=== PATIENT | female | born 1990 | race Caucasian/White ===

== ENCOUNTER 2024-10-20 12:49 | Emergency (ER) | payer OTHER, SELFPAY ==
--- OUTSIDE RECORDS SUMMARY | 2024-10-20 12:57 | XMS_ITS | Clinical Summary ---
Author Organization [facility] Address [address] [place] [address] Care Team Providers Care Poising Inspector Name Role Phone Dariela Nesbitt MD Primary Care Provider [phone] Nicolle Howard MD Unavailable [phone] Allergies No known active allergies Medications vit [id number]-qord-hbzbv-d small 27mg iron- 800 mcg-250 mg capsuleIndicati ons: Take 1 capsule by mouth daily Active acidophilus-pec tin, citrus 100 million cell-10 mg capsule Take by mouth Active Active Problems Problem Noted Date Diagnosed Date Encounter for ultrasound to check growth 0 09/13/2024 Marginal placenta previa 07/19/2024 Encounter for screening for cervical l ength 07/17/2024 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 Overview (08/13/2021): Added automatically from request for surgery [id number] Estimated Date of Delivery Comme nts Yes 12/12/2024 Based on last me nstrual period of 03/07/2024 Resolved Problems Problem Noted Date Diagnosed Date Resolved Date Encounter for anatomic survey 07/17/2024 09/13/2024 Confirm cardiac activi ty using ultrasound 04/25/2024 07/17/2024 IUD strings lost 08/06/2019 08/31/2021 IUD check up 08/06/2019 08/31/2021 Anorectal pain 12/22/2015 07/26/2019 Exomphalos 06/14/2013 07/26/2019 Encounters Date Type Department Care Team Description 10/17/2024 2:30 PM CDT Office Visit [facility] [address] [phone] Gela Rocha MD Encounter for supervision of other normal in third trimester (Primary Dx); 32 weeks gestation of ; Need for ldgjurmntn-dnuzgoh-r ertussis (Tdap) vaccine 10/03/2024 2:15 PM CDT Office Visit [facility] [address] [phone] Gela Rocha MD Encounter for supervision of other normal in third trimester (Primary Dx); 30 weeks gestation of 09/19/2024 9:55 AM CDT - 09/19/2024 11:59 PM CDT Hospital Encounter [address] [phone] Discharge Disposition: Discharge to home or self care 09/19/2024 8:45 AM CDT Office Visit [facility] [address] [phone] Gela Rocha MD Encounter for supervision of other normal in third trimester (Primary Dx); 28 weeks gestation of 09/19/2024 8:00 AM CDT Clinical Support [facility] [address] [phone] Marginal placenta previa (Primary Dx); Encounter for screening for cervical length; Encounter for ultrasound to check growth 08/21/2024 2:30 PM CDT Office Visit [facility] [address] [phone] Zully Rogers NP care in second trimester (Primary Dx); 23 weeks gestation of from Last 3 Months Immunizations Immunization Administration Dates Next Due Moderna SARS-CoV-2 Monovalent Vaccination (12+ Y RS) 11/25/2020,10/28/2020 Tdap 10/17/2024,02/28/2019 Surgical History Surgery Date Site/Laterality Comments HERNIA REPAIR 06/06/2009 - 06/05/2010 FISTULA REPAIR 06/06/2020 - 06/05/2021 Medical History Medical History Date Comments Migraines Motion sickness Family History Medical History Relation Name Comments No Known Problems Father Anesthesia problems Mother PONV Breast cancer Mother Malig Hyperthermia Neg Hx Pseudochol deficiency Neg Hx Relation Name Status Comments Father Mother Social History Tobacco Use Types Packs/Day Years Used Date Smoking Tobacco: Never Smokeless Tobacco: Never Tobacco Cessation:Counseling Given: Not Answered Alcohol Use Standard Drinks/Week Comments Yes 0 (1 standard drink = 0.6 oz pur e alcohol) Humiliation, Afraid, Rape, and Kick questionnair e Answer Date Recorded Fear of Current or Ex-Partner No Emotionally Abused No 07/26/2019 Physically Abused No 07/26/2019 Sexually Abused No 07/26/2019 Social Connection and Isolation Panel [NHANES] A nswer Date Recorded Frequency of Communication with Friends and Fami ly Not on file 07/26/2019 Frequency of Social Gatherings with Friends and Family Not on file 07/26/2019 Attends Muslim Services Not on file 07/26 Active Member of Clubs or Organizations Not on f ile 07/26/2019 Attends Club or Organization Meetings Not on colin e 07/26/2019 Marital Status Never 07/26/2019 AUDIT-C Answer Date Recorded Q1: How often do you have a drink containing alc ohol? 2-4 times a month 09/16/2021 Q2: How many drinks containi ng alcohol do you have on a typical day when you are drinking? 1 or 2 09/16/2021 Q3: How often do you have si x or more drinks on one occasion? 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 Gender Identity Not on file Sexual Orientation Not on file Obstetrics History Para Term AB IAB SAB Ectopic Multiple Livin g Live Births 1 0 0 0 0 0 0 0 0 0 0 Date Outcome GA Total Labor Labor/2nd/3rd Weight Sex Type Anes PTL Feli A1 A5 Name Clin Current Summary Episode Dates Number of Fetuses Estimated Date of Delivery 04/30/2024 - Present (10/20/2024) 12/12/2024 (set by Gela Rocha MD on 04/30/2024 based on Last Menstrual Period on 03/07/2024) Dating Summary Based On [facility] [place] Diff Last Menstrual Period on 03/07/2024 12/12/2024 Working Ultrasound on 04/30/2024 12/12/2024 Same GA:7w5d Alternate [facility] Entry 12/12/2024 Same Comment:Date entered prior t o episode creation Vitals Pregravid Weight Height TWG (As of 10/20/2024) Pregrav id BMI 54.9 kg (121 lb) 160 cm (5' 3 ) 10.4 kg (23 lb) 21.44 Notes Progress Notes - Office Visi t - 10/17/2024 - GA:32w0d 10/17/2024 - 32w0d - Gela Rocha MD [place] is feeling daily movement. She denies any vaginal bleeding, leakage of fluid or regular contractions. She denies any headaches, visual changes, right upper quadrant/epigastric pain or increased swelling. Ultrasound 28w revealed EFW= 1121 g or 2 lb 8 oz, 29% with AC= 44%. JOJO of 16.1 cm. Vertex presentation. Stomach, bladder, kidneys and diaphragm appeared normal. Placenta is posterior and 1.7 cm from internal os. Cervical length was noted to be 3.5 cm. heart rate measured 131 beats per minute. A/P 34 y.o. @ 32w0d by LMP=7w ultrasound (baby boy) 1. Supervision -A+/RI/-/-/NR, varicella immune, HepC-, declines influenza vaccine, GCT= 105, Tdap vaccine given 10/17 -s/p low risk NIPT -s/p genetic carrier screening tested negative for 4/ (negative testing for CF/SMA/fragile X/DMD) - labor precautions reviewed -preeclampsia precautions reviewed -kick counts reviewed and she was encouraged to call for decreased movement. -desires circumcision for their son, has breast pump (plans to pump breast milk, not directly breastfeed) - contraceptive options reviewed and she is leaning towards condoms 2. 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 Marginal previa -marginal previa again noted on ultrasound at 28w, placental edge 1.7 cm from os, reviewed with the patient that I suspect that this may move further away and we will reassess placental location at 34w -instructed to go the hospital for any episodes of vaginal bleeding or persistent/regular contractions Progress Notes - Office Visi t - 10/03/2024 - GA:30w0d 10/03/2024 - 30w0d - Gela Rocha MD [place] is feeling daily movement. She denies any vaginal bleeding, leakage of fluid or regular contractions. She denies any headaches, visual changes, right upper quadrant/epigastric pain. She has noted some discomfort just above and lateral to her umbilicus that she would describe as a burning sensation and she feels it is near where she had hernia repair when she was in high school. She reports this discomfort is somewhat positional and it does improve if she leans forward her arches her back. The pain that has not occurred daily and has improved this week compared to past week. She also has noticed some discomfort over lateral aspect of her ribs and feels as if she maybe running out of room. She denies any difficulty breathing or difficulty taking a deep breath. She denies any chest pain or shortness of breath. Abdomen is gravid, soft and nontender. She has scar below her umbilicus consistent with her prior umbilical hernia repair. When she Valsalva's her pushes out a can not feel any defects or hernias. I feel her hernia repair is still intact. Ultrasound 28w revealed EFW= 1121 g or 2 lb 8 oz, 29% with AC= 44%. JOJO of 16.1 cm. Vertex presentation. Stomach, bladder, kidneys and diaphragm appeared normal. Placenta is posterior and 1.7 cm from internal os. Cervical length was noted to be 3.5 cm. heart rate measured 131 beats per minute. A/P 34 y.o. @ 30w0d by LMP=7w ultrasound (baby boy) 1. Supervision -A+/RI/-/-/NR, varicella immune, HepC-, declines influenza vaccine, GCT= 105 -s/p low risk NIPT -s/p genetic carrier screening tested negative for 09/07 (negative testing for CF/SMA/fragile X/DMD) - labor precautions reviewed -preeclampsia precautions reviewed -kick counts reviewed and she was encouraged to call for decreased movement. -desires circumcision for their son, has breast pump (plans to pump breast milk, not directly breastfeed) - contraceptive options reviewed and she is leaning towards condoms -Tdap vaccine to be offered at subsequent visits 2. 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 Marginal previa -marginal previa again noted on ultrasound at 28w, placental edge 1.7 cm from os, reviewed with the patient that I suspect that this may move further away and we will reassess placental location at 34w -instructed to go the hospital for any episodes of vaginal bleeding or persistent/regular contractions Progress Notes - Office Visi t - 09/19/2024 - GA:28w0d 09/19/2024 - 28w0d - Gela Rocha MD [place] is feeling daily movement. She denies any vaginal bleeding, leakage of fluid or regular contractions. She denies any headaches, visual changes, right upper quadrant/epigastric pain. She has noted bilateral nipple leakage of clearish to milky fluid. She denies any bloody nipple discharge, brown or pink nipple discharge. Ultrasound today reveals EFW= 1121 g or 2 lb 8 oz, 29% with AC= 44%. JOJO of 16.1 cm. Vertex presentation. Stomach, bladder, kidneys and diaphragm appeared normal. Placenta is posterior and 1.7 cm from internal os. Cervical length was noted to be 3.5 cm. heart rate measured 131 beats per minute. A/P 34 y.o. @ 28w0d by LMP=7w ultrasound (baby boy) 1. Supervision -A+/RI/-/-/NR, varicella immune, HepC-, declines influenza vaccine -s/p low risk NIPT -s/p genetic carrier screening tested negative for 4/4 (negative testing for CF/SMA/fragile X/DMD) - labor precautions reviewed -preeclampsia precautions reviewed -kick counts reviewed and she was encouraged to call for decreased movement. -desires circumcision for their son, has breast pump (plans to pump breast milk, not directly breastfeed) -GCT/CBC/RPR obtained today -Tdap vaccine to be offered at subsequent visits 2. 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 Marginal previa -marginal previa again noted on ultrasound at 28w, placental edge 1.7 cm from os, reviewed with the patient that I suspect that this may move further away and we will reassess placental location at 34w -instructed to go the hospital for any episodes of vaginal bleeding or persistent/regular contractions Progress Notes - Clinical Sloan pport - 09/19/2024 - GA:28w0d 09/19/2024 - 28w0d - Lin Marie RDMS 28w0d 2lbs8z(1121g) 29% Presentation Vertex Placenta is posterior and 1.7cm from the internal os Cx length 35mm FHR 131bpm JOJO 16.1cm Progress Notes - Office Visi t - 08/21/2024 - GA:23w6d 08/21/2024 - w6d - Zully Rogers NP Patient reports she is starting to feel more movement and is feeling movement daily. Had a couple of episodes of light being sensation in the groin. Has had a couple of intermittent episodes of constipation and she has taken some MiraLax/stool softener as needed. She denies vaginal bleeding, leaking of fluid, regular cramps or contractions. She denies headaches dizziness lightheadedness epigastric or right upper quadrant pain. Reports moods are stable. Weight increased 6 lb since last visit. Blood pressure normal. She does report that there is history of precipitous deliveries in her family. 34-year-old 1 para 0 at 23 weeks 6 days by LMP which equals 7 week ultrasound-baby boy Low risk NIPT Status post genetic carrier screening negative-09/07-autosomal recessive/X-linked disorder tests-CF, SMA, fragile X, BMD A positive, rubella immune, varicella immune Hemoglobin 1st trimester-13.7 Anatomy ultrasound-07/19/2024 No malformations or markers for aneuploidy noted, EFW-59%, placenta posterior with marginal previa. Placental edge is right at the edge of the internal os. Cervical length normal at 3.9 cm. FHR-141 History of anal fistula-status post fistulotomy-September 2021 No residual symptoms, no other perirectal disease-no history of autoimmune/inflammatory bowel disease Reviewed with patient this history unlikely to affect vaginal , she will let us know if she becomes symptomatic at the time of cervical checks at 36 weeks Marginal previa Patient previously counseled and is following pelvic rest and precautions given Patient denies any vaginal bleeding or worrisome abdominal pain or cramps Repeating ultrasound at 28-30 weeks to assess placental location, will further discuss mode of delivery based on subsequent ultrasounds Constipation Discussed importance of good hydration, fruits vegetables fiber in diet and regular exercise. Discussed gmxr-wka-ifhscdx stool softeners that are safe along with magnesium supplementation 250-500 mg of citrate at night. 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 Rocha along with labs/ultrasound to check placenta location Progress Notes - Office Visi t - 07/19/2024 - GA:19w1d 07/19/2024 - w1d - Gela Rocha MD [place] has been feeling movement intermittently over the past 1-2 weeks. She denies any vaginal bleeding or cramping. She reports that she will notice more pulling sensation and discomfort and therefore has decrease the intensity or impact of her exercises. She does more lower impact exercises, but continues to exercise regularly. Anatomical survey ultrasound today reveals no malformations or markers for aneuploidy. EFW was noted to be 290 g or 59%. Placenta was noted to be posterior with marginal previa. Placental edge is right at the edge of internal os. Cervical length is normal at 3.9 cm. heart rate measured 141 beats per minute. A/P 34 y.o. @ 19w1d by LMP=7w ultrasound (baby boy) 1. 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 Marginal previa -reviewed findings of marginal previa on ultrasound, she understands that she should contact us if she has any vaginal bleeding or uterine cramping/contractions -repeat ultrasound 28-30w to reassess placental location, discussed need for delivery if persistent marginal previa at term THCARE ECONOMICS MANAGER Progress Notes - Clinical Sloan pport - 07/19/2024 - GA:19w1d 07/19/2024 - w1d - Lin Marie RDMS See ultrasound report THCARE ECONOMICS MANAGER Progress Notes - Office Visi t - 06/19/2024 - GA:14w6d 06/19/2024 - wd - Gela Rocha MD [place] reports that she is feeling well overall. Denies any vaginal bleeding or abdominal/pelvic cramping. A/P 34 y.o. @ 14w6d by LMP=7w ultrasound (baby boy) 1. Supervision -A+/RI/-/-/NR, varicella immune, HepC-, declines influenza vaccine -s/p low risk NIPT -s/p genetic carrier screening tested negative for 4/4 (negative testing for CF/SMA/fragile X/DMD) -anatomy ultrasound scheduled 07/19 2. History of anal fistula s/p fistulotomy September 2021 -no residual symptoms, no other perirectal disease (hx autoimmune/inflammatory bowel disease) -reviewed with patient this history unlikely to affect vaginal , she will let us know she becomes symptomatic o/w exam at the time of cervical checks at 36w THCARE ECONOMICS MANAGER Progress Notes - Office Visi t - 05/25/2024 - GA:11w2d 05/25/2024 - w - Zully Rogers NP Patient reports overall she is feeling well. She does report food aversions and some feelings of malaise throughout the day. She reports some nausea throughout the day but she feels this is manageable-no vomiting. She denies vaginal bleeding or worrisome abdominal pain or cramps. Has had a few headaches. She denies dizziness or lightheadedness. She has questions about exercise safety, diet restrictions during the holidays. She does lift light weights, does stationary bike, and cardio. She is taking a vitamin and has been taking that at night which does help. She reports no concerns with constipation or diarrhea. She does report some grade discharge this morning but that has resolved. She denies vaginal bleeding, itching dysuria frequency or excessive urgency of urination. She reports stable moods. She has questions about possibility for elective delivery. Weight is up 2 lb since last visit. Blood pressure normal. [id number] TAPS Screen performed 34-year-old at 11 weeks 2 days by LMP which equals 7 week ultrasound Desires NIPT testing today with gender-obtained and pending Desires Horizon panel testing-4/4 panel obtained to screen for autosomal recessive/X-linked disorder testing-pending Ob labs-04/30/2024 A positive, rubella immune, varicella immune, hepatitis-B nonreactive, hepatitis-C nonreactive, HIV negative, H/H-13.7/40.5, MCV-91.8, platelets slightly increased-412, urine shows growth consistent with periurethral indy Headaches Encouraged good hydration, eating small frequent meals with emphasis on protein. Discuss usage of extra-strength Tylenol with 6-10 oz of caffeine. Patient to contact us for more persistent or severe headaches not relieved with the above measures Briefly discussed preventative magnesium/vitamin B2 Normal care UA specific gravity-1.025, pH 6.0, negative on all counts-encouraged good nutrition good hydration Reviewed importance of electrolytes, protein through diet Discussed brat diet, eating small frequent meals, vitamin B6, elton, peppermint Reviewed exercise precautions and restrictions Reviewed dietary restrictions and precautions in Patient to contact us with vaginal bleeding or worrisome abdominal pain or cramps Continue vitamins She is encouraged to ask her questions on elective primary delivery with Dr. Rocha at next visit, she understands we will continue to discuss this topic with each subsequent ultrasound including anatomy and growth scan Flu vaccination offered and discussed-patient counseled, she elects to defer today but may consider it at future visit-reviewed recommendations and patient aware it is considered safe in Follow-up in the clinic in 4 weeks for an appointment with Dr. Rocha Cosigned by Gela Rocha MD at 05/26/2024 5:38 AM HEALTHCARE ECONOMICS MANAGER THCARE ECONOMICS MANAGER THCARE ECONOMICS MANAGER THCARE ECONOMICS MANAGER THCARE ECONOMICS MANAGER Progress Notes - Office Visi t - 04/30/2024 - GA:7w5d 04/30/2024 - 7w5d - Pau Rocha MD Patient ID: [place] Watters is a 34 y.o. female Subjective Chief Complaint: Initial Visit HPI [place] presents with her soon to be , Elliott, for new obstetric appointment. She is getting on 05/06/2024 and do have a destination wedding in [place]. She is hoping it was okay to travel to [place] this early gestation. She is not having any symptoms such as vaginal bleeding, cramping, abdominal pain or discomfort. She does have some mild nausea, but no vomiting. She reports eating frequently and keeping herself hydrated prevents the nausea. She also has some food aversions especially eating meat and she is hoping she is able to get enough protein with other foods until she craves meet again. She reports some mild breast tenderness, but otherwise feels well. She was tolerating her vitamins. Neither she or her partner are aware of any family history of genetic disorders, chromosomal abnormalities, malformation/ defects. 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 Review of Systems Constitutional: Negative for activity change, fatigue and unexpected weight change. Gastrointestinal: Negative for abdominal pain and vomiting. Nausea: mild intermittent nausea. Genitourinary: Negative for pelvic pain and vaginal bleeding. Histories Medical Migraine without aura, history of situational anxiety, history of anal fistula Surgical Umbilical hernia repair, fistulotomy for anorectal fistula September 2021 OBGYN She is a primigravida. Menarche was age 14. Menses were regular prior to starting hormonal contraception. She has had a Mirena IUD in place since January 2018. She reports mildly abnormal Pap smear with negative colposcopy 7 years ago. She has had normal Pap smear screening since then. Her most recent Pap smear from 09/02/2022 revealed normal cytology with negative high-risk HPV. Family Mother had breast cancer age 48 and subsequent negative genetic testing. Mother has anxiety. Father is healthy. Maternal grandmother has dementia. Maternal grandfather of stroke in his 80s. She is not aware of any other family history of cancer. Social Patient reports that she has never smoked. She has never used smokeless tobacco. She reports current alcohol use. She reports that she does not use drugs. Meds Current Outpatient Medications: vit 62-lkvw-ahnkk-dha 27mg iron- 800 mcg-250 mg capsule, Take 1 capsule by mouth daily, Disp: , Rfl: Allergies Patient has no known allergies. Objective BP 110/70 Wt 121 lb (54.9 kg) LMP 11/12/2023 (Exact Date) BMI 21.78 kg/m Physical Exam Constitutional: General: She is not in acute distress. Appearance: She is normal weight. Neurological: Mental Status: She is alert. Psychiatric: Mood and Affect: Mood normal. Ultrasound today reveals viable intrauterine with crown-rump length equal to 1.42 cm/7 week 5 day gestation. Positive heart motion is noted 164 beats per minute. Yolk sac was identified. Both ovaries are non cystic with right ovary measuring 2.4 x 1.7 x 1.7 cm and left ovary measuring 3.5 x 2.0 x 1.3 cm. No free fluid is noted in the posterior cul-de-sac. Assessment/Plan 1. Initial obstetric visit in first trimester (Primary) - CBC with auto differential; Future - Hepatitis B Surface Antigen Blood; Future - RPR Blood; Future - Rubella IgG antibody Blood; Future - Type and screen; Future - HIV 1/2 Antibody plus p24 Antigen Blood; Future - Urine culture Urine, clean voided; Future - Varicella Zoster IgG antibody Blood; Future - Varicella Zoster IgG antibody Blood - Urine culture Urine, clean voided - HIV 1/2 Antibody plus p24 Antigen Blood - Type and screen - Rubella IgG antibody Blood - RPR Blood - Hepatitis B Surface Antigen Blood - CBC with auto differential A/P 34 y.o. @ 7w5d by LMP=7w ultrasound. 1. 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 MANAGER Last Filed Vital Signs Vital Sign Reading Time Taken Comments Blood Pressure 120/74 10/17/2024 3:19 PM CDT Pulse 70 11/09/2021 10:04 AM CDT Temperature 36 C (96.8 F) 09/16/2021 6:55 AM CDT Respiratory Rate 18 09/16/2021 9:10 AM CDT Oxygen Saturation 99% 11/09/2021 10:04 AM CDT Inhaled Oxygen Concentration - - Weight 65.3 kg (144 lb) 10/17/2024 3:19 PM CDT Height 160 cm (5' 3 ) 09/19/2024 8:34 AM CDT Body Mass Index 25.51 09/19/2024 8:34 AM CDT Plan of Treatment Health Maintenance Due Date Last Done Comments Depression Screening 1990 Hepatitis C Screening 1990 Varicella Vaccines (1 of 2 - 13+ 2-dose series) 02/18/2004 Hepatitis B Screening 2009 Cervical Cancer Screening 09/03/2023 09/02/2022 Covid-19 Vaccine ( - season) 2024 11/25/2020, 10/28/2020 Regular Well Visit/Exam 18-64 09/28/2024 09/29/2023, 09/02/2022, 08/31/2021, Additional history exists Influenza Vaccine (Season Ended) 2025 DTaP/Tdap/Td Vaccine (3 - Td or Tdap) 10/17/2034 10/17/2024, 02/28/2019 HPV Vaccines Aged Out No longer eligi ble based on patient's age to complete this topic Pneumococcal vaccine <65 Aged Out No longer eligible based on patient's age to complete this topic Procedures Procedure Name Priority Date/Time Associated Diagnosis Comments POCT OB URINE SHORT DIP (GLUCOSE, PROTEIN, KETONES) Routine 10/17/2024 3:33 PM CDT Encounter for supervision of other normal in third trimester 32 weeks gestation of POCT OB URINE SHORT DIP (GLUCOSE, PROTEIN, KETONES) Routine 10/03/2024 3:40 PM CDT Encounter for supervision of other normal in third trimester 30 weeks gestation of GTT 50GM 1HR GESTATIONAL SCREEN Routine 09/19/2024 2:53 PM CDT 28 weeks gestation of RPR Routine 09/19/2024 1:36 PM CDT 28 weeks gestation of DIFFERENTIAL AUTO Routine 09/19/2024 8:3 9 AM CDT 28 weeks gestation of CBC WITH AUTO DIFFERENTIAL Routine 09/19/2024 8:39 AM CDT 28 weeks gestation of POCT OB URINE SHORT DIP (GLUCOSE, PROTEIN, KETONES) Routine 09/19/2024 8:13 AM CDT Encounter for supervision of other normal in third trimester US OB FOLLOW UP WITH US TRANSVAGINAL (C) Schedule Routine, Read Routine (OP Routine) 09/19/2024 Marginal placenta previa Encounter for screening for cervical length Encounter for ultrasound to check growth POCT OB URINE SHORT DIP (GLUCOSE, PROTEIN, KETONES) Routine 08/21/2024 2:20 PM CDT care in second trimester 23 weeks gestation of PAP AND HIGH RISK HPV, REFLEX TO GENOTYPING Routine 09/02/2022 12:51 PM CDT Well woman exam with routine gynecological exam from Last 3 Months or Most Recently Relevant to Health Maintenance Results * POCT OB urine short dip (glucose, protein, ketones) (10/17/2024 3:33 PM CDT) Glucose, ur, POC Negative Negative Protein, ur, POC Negative Negative Ketones, ur, POC Negative Negative Lot Number [id number] Urine 10/17/2024 3:33 PM CDT us Gela Rocha MD POINT OF CARE TEST ORDERABLES Final Result * POCT OB urine short dip (glucose, protein, ketones) (10/03/2024 3:40 PM CDT) Glucose, ur, POC Negative Negative Protein, ur, POC Negative Negative Ketones, ur, POC Negative Negative Lot Number 74 Urine 10/03/2024 3:40 PM CDT us Gela Rocha MD POINT OF CARE TEST ORDERABLES Final Result * GTT 50gm 1hr gestational screen (09/19/2024 2:53 PM CDT) GTT 50g gest screen 105 <=140 mg/dL Comment: Interpretive Data Used for suspected gestational diabetes. The screening test uses 50 grams of glucose with sample obtained 1 hr later. Normal range: < 140 mg/dL. A glucose value of >140 mg/dL generally indicates the need for a full diagnostic tolerance test. Reference Interval Info: Diabetes Care 2005, Vol 28. Supplement 1,S37-S42. Report of the Expert Committee on the Diagnosis and Classification of Diabetes Mellitus. Diabetes Care 2020; 43(Supplement 1):S14-31. Current interpretive data was last revised on 2020. Blood 09/19/2024 2:53 PM CDT 09/19/2024 2:53 PM CDT Gela Rocha MD LAB BLOOD ORDERABLES Final Res ult [facility] [address] Department [place] [employer] [place] [address] * RPR Blood (09/19/2024 1:36 PM CDT) RPR Nonreactive Nonreactive Comment:Testing performed by : [facility], [address] [place] [address]., [id number] Blood 09/19/2024 1:36 PM CDT 09/19/2024 4:55 PM CDT Gela Rocha MD LAB MICROBIOLOGY - GENERAL ORD ERABLES Final Result Performing Organization Address City/[facility]/ZIP Co de Phone Number [facility] [address] Department [employer] [place] [address] * (ABNORMAL) Differential, auto (09/19/2024 8:39 AM CDT) Neutrophil abs 6.52(H) 1.50 - 6.50 K/cumm Imm gran abs 0.05 0.00 - 0.10 K/cumm [facility] Lymphocyte abs 1.45 0.80 - 3.30 K/cumm [facility] Monocyte abs 0.50 0.20 - 0.80 K/cumm [facility] Eosinophil abs 0.07 0.00 - 0.50 K/cumm [facility] Basophil abs 0.05 0.00 - 0.10 K/cumm [facility] Neutrophil pct 75.4 % [facility] Comment: Interpretive Data Percent cell count reference ranges are not reported, since discordance with absolute values may lead to misinterpretation of CBC data. Current Interpretive Data was last revised on 2017. Imm gran pct 0.6 % [facility] Comment: Interpretive Data Percent cell count reference ranges are not reported, since discordance with absolute values may lead to misinterpretation of CBC data. Current Interpretive Data was last revised on 2017. Lymphocyte pct 16.8 % [facility] Comment: Interpretive Data Percent cell count reference ranges are not reported, since discordance with absolute values may lead to misinterpretation of CBC data. Current Interpretive Data was last revised on 2017. Monocyte pct 5.8 % [facility] Comment: Interpretive Data Percent cell count reference ranges are not reported, since discordance with absolute values may lead to misinterpretation of CBC data. Current Interpretive Data was last revised on 2017. Eosinophil pct 0.8 % [facility] Comment: Interpretive Data Percent cell count reference ranges are not reported, since discordance with absolute values may lead to misinterpretation of CBC data. Current Interpretive Data was last revised on 2017. Basophil pct 0.6 % [facility] Comment: Interpretive Data Percent cell count reference ranges are not reported, since discordance with absolute values may lead to misinterpretation of CBC data. Current Interpretive Data was last revised on 2017. Blood 09/19/2024 8:39 AM CDT 09/19/2024 2:53 PM CDT us Gela Rocha MD LAB BLOOD ORDERABLES Final Res ult [facility] [address] [place] [address] * (ABNORMAL) CBC with auto differential (09/19/2024 8:39 AM CDT) WBC 8.64 3.80 - 9.90 K/cumm Hgb 12.3 11.9 - 15.5 g/dL [facility] Hct 37.3 35.6 - 45.5 % [facility] Plt 316 150 - 400 K/cumm [facility] MPV 10.6 9.1 - 12.[address] [facility] RBC 3.88(L) 3.90 - 5.20 M/cumm [facility] MCV 96.1 81.3 - 96.[address] [facility] MCH 31.7 27.1 - 33.[address] [facility] MCHC 33.0 32.3 - 35.7 g/dL [facility] RDW CV 13.2 11.1 - 14.9 % [facility] RDW SD 46.7 35.7 - 48.[address] [facility] NRBC abs 0.00 0.00 - 0.01 K/cumm [facility] Blood 09/19/2024 8:39 AM CDT 09/19/2024 2:53 PM CDT us Gela Rocha MD LAB BLOOD ORDERABLES Final Res ult [facility] [address] Department [place] [address] * POCT OB urine short dip (glucose, protein, ketones) (09/19/2024 8:13 AM CDT) Glucose, ur, POC Negative Negative MG/DL Protein, ur, POC Negative Negative Ketones, ur, POC Negative Negative Lot Number 0 Urine 09/19/2024 8:13 AM CDT us Gela Rocha MD POINT OF CARE TEST ORDERABLES Final Result * US OB Follow up with US Transvaginal (C) (09/19/2024) Anatomical Region Laterality Modality Abdomen N/A Ultrasound us Gela Rocha MD IMG OB US PROCEDURES Edited Re sult - Final * POCT OB urine short dip (glucose, protein, ketones) (08/21/2024 2:20 PM CDT) Glucose, ur, POC Negative Negative MG/DL Protein, ur, POC Negative Negative Ketones, ur, POC Negative Negative Lot Number 0 Urine 08/21/2024 2:20 PM CDT us Zully Rogers NP POINT OF CARE TEST ORDERABL ES Final Result * Pap and High Risk HPV, reflex to Genotyping (09/02/2022 12:51 PM CDT) Thin prep (Pap test) 09/02/2022 12:51 PM CDT 09/08/2022 1:19 PM CDT Narrative PATHOLOGY [id number]|2024-10-20 12:57:00|2024-10-20 12:57:00|XMS_ITS|BKG CALEON|External Medical Summaries|[id number]|" Referral Summary Created on: October 20, 2024 Mod[place] Felix : 1990 Sex: Female Author Organization [facility] Address [address] [place] [address] Care Team Providers Care Poising Inspector Name Role Phone Dariela Nesbitt MD Primary Care Provider [phone] Nicolle Howard MD Unavailable [phone] Encounters Date Type Department Care Team Description 10/17/2024 2:30 PM CDT [facility] [address] [place] [phone] Gela Rocha MD Encounter for supervision of other normal in third trimester (Primary Dx); 32 weeks gestation of ; Need for hmdpqbveux-pzelwub-s ertussis (Tdap) vaccine 10/03/2024 2:15 PM CDT Office Visit [facility] at [address] [place] [phone] Gela Rocha MD Encounter for supervision of other normal in third trimester (Primary Dx); 30 weeks gestation of 09/19/2024 9:55 AM CDT - 09/19/2024 11:59 PM CDT Hospital Encounter [address] [phone] Discharge Disposition: Discharge to home or self care 09/19/2024 8:45 AM CDT Office Visit [facility] at [address] [place] [phone] Gela Rocha MD Encounter for supervision of other normal in third trimester (Primary Dx); 28 weeks gestation of 09/19/2024 8:00 AM CDT Clinical Support [facility] [address] [place] [phone] Marginal placenta previa (Primary Dx); Encounter for screening for cervical length; Encounter for ultrasound to check growth 08/21/2024 2:30 PM CDT Office Visit [facility] at [address] [phone] Zully Rogers NP care in second trimester (Primary Dx); 23 weeks gestation of from Last 3 Months Allergies No known active allergies Medications vit [id number]-hdncj-d small 27mg iron- 800 mcg-250 mg capsuleIndicati ons: Take 1 capsule by mouth daily Active acidophilus-pec tin, citrus 100 million cell-10 mg capsule Take by mouth Active Active Problems Problem Noted Date Diagnosed Date Encounter for ultrasound to check growth 0 09/13/2024 Marginal placenta previa 07/19/2024 Encounter for screening for cervical l ength 07/17/2024 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 Overview (08/13/2021): Added automatically from request for surgery [id number] Estimated Date of Delivery Comme nts Yes 12/12/2024 Based on last me nstrual period of 03/07/2024 Resolved Problems Problem Noted Date Diagnosed Date Resolved Date Encounter for anatomic survey 07/17/2024 09/13/2024 Confirm cardiac activi ty using ultrasound 04/25/2024 07/17/2024 IUD strings lost 08/06/2019 08/31/2021 IUD check up 08/06/2019 08/31/2021 Anorectal pain 12/22/2015 07/26/2019 Exomphalos 06/14/2013 07/26/2019 Immunizations Immunization Administration Dates Next Due Moderna SARS-CoV-2 Monovalent Vaccination (12+ Y RS) 11/25/2020,10/28/2020 Tdap 10/17/2024,02/28/2019 Social History Tobacco Use Types Packs/Day Years Used Date Smoking Tobacco: Never Smokeless Tobacco: Never Tobacco Cessation:Counseling Given: Not Answered Alcohol Use Standard Drinks/Week Comments Yes 0 (1 standard drink = 0.6 oz pur e alcohol) Humiliation, Afraid, Rape, and Kick questionnair e Answer Date Recorded Fear of Current or Ex-Partner No Emotionally Abused No 07/26/2019 Physically Abused No 07/26/2019 Sexually Abused No 07/26/2019 Social Connection and Isolation Panel [NHANES] A nswer Date Recorded Frequency of Communication with Friends and Fami ly Not on file 07/26/2019 Frequency of Social Gatherings with Friends and Family Not on file 07/26/2019 Attends Muslim Services Not on file 07/26 Active Member of Clubs or Organizations Not on f ile 07/26/2019 Attends Club or Organization Meetings Not on colin e 07/26/2019 Marital Status Never 07/26/2019 AUDIT-C Answer Date Recorded Q1: How often do you have a drink containing alc ohol? 2-4 times a month 09/16/2021 Q2: How many drinks containi ng alcohol do you have on a typical day when you are drinking? 1 or 2 09/16/2021 Q3: How often do you have si x or more drinks on one occasion? 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 Gender Identity Not on file Sexual Orientation Not on file Last Filed Vital Signs Vital Sign Reading Time Taken Comments Blood Pressure 120/74 10/17/2024 3:19 PM CDT Pulse 70 11/09/2021 10:04 AM CDT Temperature 36 C (96.8 F) 09/16/2021 6:55 AM CDT Respiratory Rate 18 09/16/2021 9:10 AM CDT Oxygen Saturation 99% 11/09/2021 10:04 AM CDT Inhaled Oxygen Concentration - - Weight 65.3 kg (144 lb) 10/17/2024 3:19 PM CDT Height 160 cm (5' 3 ) 09/19/2024 8:34 AM CDT Body Mass Index 25.51 09/19/2024 8:34 AM CDT Plan of Treatment Not on file Procedures Procedure Name Priority Date/Time Associated Diagnosis Comments POCT OB URINE SHORT DIP (GLUCOSE, PROTEIN, KETONES) Routine 10/17/2024 3:33 PM CDT Encounter for supervision of other normal in third trimester 32 weeks gestation of POCT OB URINE SHORT DIP (GLUCOSE, PROTEIN, KETONES) Routine 10/03/2024 3:40 PM CDT Encounter for supervision of other normal in third trimester 30 weeks gestation of GTT 50GM 1HR GESTATIONAL SCREEN Routine 09/19/2024 2:53 PM CDT 28 weeks gestation of RPR Routine 09/19/2024 1:36 PM CDT 28 weeks gestation of DIFFERENTIAL AUTO Routine 09/19/2024 8:3 9 AM CDT 28 weeks gestation of CBC WITH AUTO DIFFERENTIAL Routine 09/19/2024 8:39 AM CDT 28 weeks gestation of POCT OB URINE SHORT DIP (GLUCOSE, PROTEIN, KETONES) Routine 09/19/2024 8:13 AM CDT Encounter for supervision of other normal in third trimester US OB FOLLOW UP WITH US TRANSVAGINAL (C) Schedule Routine, Read Routine (OP Routine) 09/19/2024 Marginal placenta previa Encounter for screening for cervical length Encounter for ultrasound to check growth POCT OB URINE SHORT DIP (GLUCOSE, PROTEIN, KETONES) Routine 08/21/2024 2:20 PM CDT care in second trimester 23 weeks gestation of PAP AND HIGH RISK HPV, REFLEX TO GENOTYPING Routine 09/02/2022 12:51 PM CDT Well woman exam with routine gynecological exam from Last 3 Months or Most Recently Relevant to Health Maintenance Results * POCT OB urine short dip (glucose, protein, ketones) (10/17/2024 3:33 PM CDT) Glucose, ur, POC Negative Negative Protein, ur, POC Negative Negative Ketones, ur, POC Negative Negative Lot Number [id number] Urine 10/17/2024 3:33 PM CDT us Gela Rocha MD POINT OF CARE TEST ORDERABLES Final Result * POCT OB urine short dip (glucose, protein, ketones) (10/03/2024 3:40 PM CDT) Glucose, ur, POC Negative Negative Protein, ur, POC Negative Negative Ketones, ur, POC Negative Negative Lot Number 74 Urine 10/03/2024 3:40 PM CDT us Gela Rocha MD POINT OF CARE TEST ORDERABLES Final Result * GTT 50gm 1hr gestational screen (09/19/2024 2:53 PM CDT) GTT 50g gest screen 105 <=140 mg/dL Comment: Interpretive Data Used for suspected gestational diabetes. The screening test uses 50 grams of glucose with sample obtained 1 hr later. Normal range: < 140 mg/dL. A glucose value of >140 mg/dL generally indicates the need for a full diagnostic tolerance test. Reference Interval Info: Diabetes Care 2005, Vol 28. Supplement 1,S37-S42. Report of the Expert Committee on the Diagnosis and Classification of Diabetes Mellitus. Diabetes Care 2020; 43(Supplement 1):S14-31. Current interpretive data was last revised on 2020. Blood 09/19/2024 2:53 PM CDT 09/19/2024 2:53 PM CDT Gela Rocha MD LAB BLOOD ORDERABLES Final Res ult Performing Organization Address City/[facility]/ZIP Co de Phone Number [facility] [address] [place] [address] * RPR Blood (09/19/2024 1:36 PM CDT) [facility] RPR Nonreactive Nonreactive Comment:Testing performed by : [facility], [address] [place]., [address] Blood 09/19/2024 1:36 PM CDT 09/19/2024 4:55 PM CDT Gela Rocha MD LAB MICROBIOLOGY - GENERAL ORD ERABLES Final Result Performing Organization Address City/[facility]/ZIP Co de Phone Number [facility] [address] [place] [address] * (ABNORMAL) Differential, auto (09/19/2024 8:39 AM CDT) [facility] Neutrophil abs 6.52(H) 1.50 - 6.50 K/cumm Imm gran abs 0.05 0.00 - 0.10 K/cumm [facility] Lymphocyte abs 1.45 0.80 - 3.30 K/cumm [facility] Monocyte abs 0.50 0.20 - 0.80 K/cumm [facility] Eosinophil abs 0.07 0.00 - 0.50 K/cumm [facility] Basophil abs 0.05 0.00 - 0.10 K/cumm [facility] Neutrophil pct 75.4 % [facility] Comment: Interpretive Data Percent cell count reference ranges are not reported, since discordance with absolute values may lead to misinterpretation of CBC data. Current Interpretive Data was last revised on 2017. Imm gran pct 0.6 % [facility] Comment: Interpretive Data Percent cell count reference ranges are not reported, since discordance with absolute values may lead to misinterpretation of CBC data. Current Interpretive Data was last revised on 2017. Lymphocyte pct 16.8 % [facility] Comment: Interpretive Data Percent cell count reference ranges are not reported, since discordance with absolute values may lead to misinterpretation of CBC data. Current Interpretive Data was last revised on 2017. Monocyte pct 5.8 % [facility] Comment: Interpretive Data Percent cell count reference ranges are not reported, since discordance with absolute values may lead to misinterpretation of CBC data. Current Interpretive Data was last revised on 2017. Eosinophil pct 0.8 % [facility] Comment: Interpretive Data Percent cell count reference ranges are not reported, since discordance with absolute values may lead to misinterpretation of CBC data. Current Interpretive Data was last revised on 2017. Basophil pct 0.6 % [facility] Comment: Interpretive Data Percent cell count reference ranges are not reported, since discordance with absolute values may lead to misinterpretation of CBC data. Current Interpretive Data was last revised on 2017. Blood 09/19/2024 8:39 AM CDT 09/19/2024 2:53 PM CDT us Gela Rocha MD LAB BLOOD ORDERABLES Final Res ult [facility] [address] [place] [address] * (ABNORMAL) CBC with auto differential (09/19/2024 8:39 AM CDT) WBC 8.64 3.80 - 9.90 K/cumm Hgb 12.3 11.9 - 15.5 g/dL [facility] Hct 37.3 35.6 - 45.5 % [facility] Plt 316 150 - 400 K/cumm [facility] MPV 10.6 9.1 - 12.[address] [facility] RBC 3.88(L) 3.90 - 5.20 M/cumm [facility] MCV 96.1 81.3 - 96.[address] [facility] MCH 31.7 27.1 - 33.[address] [facility] MCHC 33.0 32.3 - 35.7 g/dL [facility] RDW CV 13.2 11.1 - 14.9 % [facility] RDW SD 46.7 35.7 - 48.[address] [facility] NRBC abs 0.00 0.00 - 0.01 K/cumm [facility] Blood 09/19/2024 8:39 AM CDT 09/19/2024 2:53 PM CDT us Gela Rocha MD LAB BLOOD ORDERABLES Final Res ult [facility] [address] Department [place] [address] * POCT OB urine short dip (glucose, protein, ketones) (09/19/2024 8:13 AM CDT) Glucose, ur, POC Negative Negative MG/DL Protein, ur, POC Negative Negative Ketones, ur, POC Negative Negative Lot Number 0 Urine 09/19/2024 8:13 AM CDT us Gela Rocha MD POINT OF CARE TEST ORDERABLES Final Result * US OB Follow up with US Transvaginal (C) (09/19/2024) Anatomical Region Laterality Modality Abdomen N/A Ultrasound us Gela Rocha MD IMG OB US PROCEDURES Edited Re sult - Final * POCT OB urine short dip (glucose, protein, ketones) (08/21/2024 2:20 PM CDT) Glucose, ur, POC Negative Negative MG/DL Protein, ur, POC Negative Negative Ketones, ur, POC Negative Negative Lot Number 0 Urine 08/21/2024 2:20 PM CDT Zully Rogers NP POINT OF CARE TEST ORDERABL ES Final Result * Pap and High Risk HPV, reflex to Genotyping (09/02/2022 12:51 PM CDT) Thin prep (Pap test) 09/02/2022 12:51 PM CDT 09/08/2022 1:19 PM CDT Narrative [facility] - 09/13/2022 2:17 PM CDT EPIC results best viewed via link to PDF [address] [address] Tele: Donna Ovalle MD - Special Services Director CYTOLOGY REPORT Note to Patients: This report may contain a detailed description of human tissue sent by a health care provider to the laboratory for pathologic evaluation. The content of this report is essential for diagnosis and may provide important critical findings. This information may be unfamiliar to patients to review without a medical professional present. It is advised that the patient review this report in the presence of a health care provider who can answer questions and explain the details. Patient Name: MODESTO WATTERS Address: [address] [place] [address] Gender: F : 1990 (Age: 32) Service: Location: N : [id number] [facility] #: [id number] Patient Type: [facility] SPECIMEN Taken: 09/02/2022 Reported: 09/13/2022 Physician(s): Gela Rocha M.D. FINAL DIAGNOSIS: SOURCE OF SPECIMEN - ThinPrep Pap and HPV w/ reflex Genotyping: STATEMENT OF ADEQUACY Source: Cervical/Endocervical - Satisfactory for interpretation - Endocervical /Transformation Zone component present - Case screened using computer assisted imaging technology GENERAL CATEGORIZATION: - Negative for intraepithelial lesion or malignancy cad/09/13/2022 14:17Kimberley Light M.S., CT (ASCP) Report Reviewed and Electronically Signed By Kimberley Light M.S., KWESI (ASCP)Clerical Data Follow A; [id number] DIAGNOSIS COMMENT: Ancillary Testing: HPV High Risk Group (16, 18, 31, 33, 35, 39, 45, 51, 52, 56, 58, 59, 66 and 68) - Not Detected Reference Range: Not Detected This test was performed using the JULIO 4800 CLINICAL DIAGNOSIS AND HISTORY Last Menstrual Period: 08/29/2022 Menstrual History: Regular Cycles Contraceptive History: IUD REPORT IMAGES AND/OR SCANNED DOCUMENTS ONLY VIEWABLE IN PDF FORMAT The Pap test is a screening test used to aid in the detection of cervical cancer and its precursors. It should not be the sole means by which malignant and premalignant lesions are diagnosed. Both false negative and false positive results may occur. It also has poor sensitivity for the detection of endometrial lesions and should not be used to evaluate suspected endometrial abnormalities. For these reasons it is most important to obtain Pap tests at regular intervals, as recommended by your physician or nurse practitioner. Gela Rocha MD LAB CYTOLOGY ORDERABLES Final Result [facility] Receiving [address] [place] [address] from Last 3 Months or Most Recently Relevant to Health Maintenance Insurance [facility] BLUE N OOS [facility] CHOICE PLUS [facility] [employer] COVENTRY HMO/POS [facility] CHOICE PLUS Care Teams Poising Inspector Relationship Specialty Start Date End Date Dariela Nesbitt MD [address] [address] PCP - General Family Medicine 10/24/18 Nicolle Howard MD [address] [address] Surgeon Colon and Rectal Surgery 05/27/21 "
[2024-10-20 13:23] VITALS: BP 119/74; PULSE 79; RESP 17; TEMP 36.5; O2SAT 100
--- NOTE | 2024-10-20 13:40 | ED.GENADULT ---
HPI - General Adult General Chief complaint: Skin/Abscess/Foreign Body Stated complaint: Hemroid vs abcess Time Seen by Provider: 10/20/24 13:41 Source: patient Mode of arrival: ambulatory Limitations: no limitations History of Present Illness HPI narrative: 34 year old female presents to [facility] care with requests for a rectal exam. Colleague states for the last 2 days she has had what appears to be of a pimple to the rectal area and states that she noticed some pus coming from the area and wanted to see if this was an abscess or a hemorrhoid. Patient is currently 32 weeks . Patient did have an anal fistula of proximally 5 years ago. Denies fevers body aches or chills. Denies any pain to the rectal area. Denies any recent constipation or issues with straining. Related Data Home Medications Medication Instructions Recorded Confirmed Last Taken Type vitamins-iron fumarate 65 1 tablet PO DAILY 10/20/24 10/20/24 Unknown History mg iron-folic acid 1 mg tablet (Mynatal Plus) Allergies Allergy/AdvReac Type Severity Reaction Status Date / Time No Known Allergies Allergy Verified 10/20/24 13:47 Review of Systems Review of Systems: CONSTITUTIONAL: Denies fever, chills, or sweats. EYES: Denies visual changes, redness, or discharge. ENT: Denies rhinorrhea, congestion, sore throat, or otalgia. CARDIOVASCULAR: Denies chest pain, palpitations, or edema. RESPIRATORY: Denies cough or dyspnea. GASTROINTESTINAL: Denies abdominal pain, nausea, vomiting, or diarrhea. Positive discharge from rectum x2 days GENITOURINARY: Denies dysuria or hematuria. SKIN: Denies rash or itching. MUSCULOSKELETAL: Denies back pain, joint pain, or myalgia. NEUROLOGIC: Denies headache, numbness, or weakness. PSYCHIATRIC: Denies anxiety or depression. PENDING SALE TO [facility] Past Medical History Medical History (Updated 10/20/24 @ 14:05 by ROSANNE Espinoza) Anal fistula Comments At the time of my signature I agree with nursing past medical history, surgical, social, and family history. There is no relevant family history pertinent to the presenting complaint. Exam Narrative: GENERAL: Well-appearing, well-nourished, and in no acute distress. HEAD: Normocephalic, atraumatic. EYES: PERRLA and EOMI. ENT: Nares clear, no rhinorrhea or epistaxis. Mucous membranes moist. NECK: Supple. No lymphadenopathy CHEST: Clear to auscultation. No respiratory distress. HEART: Regular rate and rhythm. No murmur heard. Normal peripheral pulses. ABDOMEN: Soft, nontender, nondistended, normal active bowel sounds. RECTUM: obvious erythema or discharge noted at the rectal exam. An internal rectal exam was performed there was no obvious hemorrhoids palpated. Patient had no pain during the exam. EXTREMITIES: Normal range of motion. No edema. SKIN: Warm, dry, no rash. NEURO: No focal deficits. Alert and oriented x3. Course Course Level of Care: Express Care Visit Vital Signs Vital signs: Vital Signs Temperature 36.5 C 10/20/24 13:23 Pulse Rate 79 10/20/24 13:23 Respiratory Rate 10/20/24 13:23 Blood Pressure 119/74 10/20/24 13:23 Pulse Oximetry 100 10/20/24 13:23 Oxygen Delivery Room Air 10/20/24 13:23 Temperature 36.5 C 10/20/24 13:23 Pulse Rate 79 10/20/24 13:23 Respiratory Rate 10/20/24 13:23 Blood Pressure 119/74 10/20/24 13:23 Pulse Oximetry 100 10/20/24 13:23 Oxygen Delivery Room Air 10/20/24 13:23 Vital signs reviewed. Medical Decision Making MDM Narrative Medical decision making narrative: Discussed with patient that I do not see any obvious hemorrhoids or abscess at this time. Discussed with her if she did have an abscess and she had a lot of discharge in October of well popped. Fact that she is not having any pain, fevers body aches or chills is reassuring. 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 Patient verbalized understanding denies any other questions or concerns at this time. Differential Diagnosis Differential Diagnosis: Differential diagnosis: Abscess, cellulitis, hidradenitis, laceration, puncture wound. Vital Signs Vital Signs: Vital Signs Temperature 36.5 C 10/20/24 13:23 Pulse Rate 79 10/20/24 13:23 Respiratory Rate 10/20/24 13:23 Blood Pressure 119/74 10/20/24 13:23 Pulse Oximetry 100 10/20/24 13:23 Oxygen Delivery Room Air 10/20/24 13:23 Temperature 36.5 C 10/20/24 13:23 Pulse Rate 79 10/20/24 13:23 Respiratory Rate 17 10/20/24 13:23 Blood Pressure 119/74 10/20/24 13:23 Pulse Oximetry 100 10/20/24 13:23 Oxygen Delivery Room Air 10/20/24 13:23 Critical Care Time Critical Care Time Critical Care Time: No Discharge Plan Discharge Clinical Impression: Encounter for rectal exam Patient Disposition: Home Condition: Stable Instructions: Antibiotic Form, Hemorrhoids (ED) Additional Instructions: continue to monitor the rectal issue. If you do start having any pain you can try some [id number] preparation H. I would also advise some warm Epson salt soaks to help debride any area there was some type of abscess there that is now popped. 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 Patient Language: Ukrainian Prescriptions: No Action Mynatal Plus 65 mg iron- 1 mg tablet 1 tablet PO DAILY Follow-up/Referrals: UNKNOWN,DOCTOR [Primary Care Provider] - Time of Disposition: 14:00
== END 2024-10-20 14:08 | disposition home or self-care (01) ==
PROVIDERS: Emergency Provider Nurse Practitioner Family
DX: Z04.89 Encounter for examination and observation for other specified reasons (principal); Z3A.32 32 weeks gestation of pregnancy
CPT/HCPCS: 99211; G0463